=== PATIENT | female | born 2005 | race African-American/Black ===

== ENCOUNTER 2024-06-28 12:12 | Emergency (ER) | payer MEDICAID ==
[~2024-06-28] VITALS: Ht 167.6 cm; Wt 86.2 kg
[2024-06-28] MEDS ORDERED: ONDANSETRON HCL/PF 4 MG/2 ML VIAL ONE (12:56)
[2024-06-28] MEDS ORDERED: KETOROLAC TROMETHAMINE 15 MG/ML VIAL ONE (12:56)
[2024-06-28] MEDS: KETOROLAC TROMETHAMINE 15 MG/ML VIAL IV ONE (13:00)
[2024-06-28] MEDS: IV NS 0.9% 1,000 ML BAG IV ONE (13:06)
[2024-06-28] MEDS: ONDANSETRON HCL/PF 4 MG/2 ML VIAL IVP ONE (13:07)
[2024-06-28] MEDS ORDERED: DICY10CA37 PO (13:25)
[2024-06-28] MEDS ORDERED: ONDA4TAB11 PO (13:25)
[2024-06-28 14:26] LABS: PREGNANCY TEST URINE QUAL NEGATIVE (NEGATIVE)
[2024-06-28 14:41] VITALS: BP 122/68; TEMP 98.3; O2SAT 97
== END 2024-06-28 14:41 | disposition home or self-care (01) ==
LOC: ER 12:17
DX: R11.2 Nausea with vomiting, unspecified (principal); E86.0 Dehydration; R10.9 Unspecified abdominal pain
CPT/HCPCS: 99284; 96374; 96361; 96375; 84703; J1885; J2405; J7030

== ENCOUNTER 2024-06-30 19:38 | Emergency (ER) | payer MEDICAID ==
[~2024-06-30] VITALS: Ht 167.6 cm; Wt 86.2 kg
[~2024-06-30 19:38] MED LIST: DICY10CA37 PO; ONDA4TAB11 PO
[2024-06-30] MEDS ORDERED: ONDANSETRON HCL/PF 4 MG/2 ML VIAL ONE (22:44)
[2024-06-30] MEDS: IV NS 0.9% 1,000 ML BAG IV ONE (22:44)
[2024-06-30] MEDS: ONDANSETRON HCL/PF 4 MG/2 ML VIAL IVP ONE (22:45)
[2024-06-30 22:55] LABS: BASOPHILS # (AUTO) 0.1 K/uL (0.0-0.2); BASOPHILS % (AUTO) 0.7 % (0.0-2.0); EOSINOPHILS % (AUTO) 0.1 % (0.0-6.0); HEMATOCRIT 40 % (33-45); HEMOGLOBIN 12.6 g/dL (11.5-14.8); LYMPHOCYTES # (AUTO) 1.8 K/uL (0.8-4.8); LYMPHOCYTES % (AUTO) 20.1 % (20.0-44.0); MEAN CORPUSCULAR HEMOGLOBIN 23 PG (26.0-33.0); MEAN CORPUSCULAR HGB CONC 32 g/dl (31.0-36.0); MEAN CORPUSCULAR VOLUME 71 fL (82-100); MONOCYTES # (AUTO) 0.4 K/uL (0.1-1.30); MONOCYTES % (AUTO) 4.3 % (2.0-12.0); NEUTROPHILS # (AUTO) 6.7 K/uL (1.8-8.9); NEUTROPHILS % (AUTO) 74.8 % (43.0-81.0); PLATELET COUNT (AUTO) 334 K/uL (150-450); WHITE BLOOD COUNT (AUTO) 8.9 K/uL (4.3-11.0)
[2024-06-30 22:57] LABS: APPEARANCE,URINE CLEAR (CLEAR); BILIRUBIN,URINE NEGATIVE (NEGATIVE); BLOOD, URINE NEGATIVE Ery/uL (NEGATIVE); COLOR,URINE YELLOW (YELLOW); KETONES,URINE 1+ mg/dL (NEGATIVE); LEUKOCYTE ESTERASE ,URINE NEGATIVE (NEGATIVE); NITRITE, URINE NEGATIVE (NEGATIVE); PROTEIN,URINE TRACE mg/dl (NEGATIVE); UGLUCOSE NEGATIVE (NEGATIVE); UROBILINOGEN,URINE 0.2 EU/dL (0.2)
[2024-06-30 22:59] LABS: PREGNANCY TEST URINE QUAL NEGATIVE (NEGATIVE)
[2024-06-30 23:06] LABS: ALBUMIN 4.5 g/dL (3.4-5.0); BILIRUBIN,DIRECT 0.1 mg/dL (0.0-0.2); BILIRUBIN,TOTAL 0.3 mg/dL (0.2-1.0); CALCIUM, SERUM 9.3 mg/dL (8.5-10.1); CREATININE 0.8 mg/dL (0.6-1.3); POTASSIUM 3.8 mmol/L (3.5-5.1); TOTAL PROTEIN, SERUM 8.1 g/dL (6.4-8.2)
[2024-06-30 23:14] LABS: ADD URINE CULTURE YES; BACTERIA,URINE Few /HPF (None Seen)
[2024-07-01] MEDS ORDERED: METO-295 PO (00:09)
[2024-07-01 00:23] VITALS: BP 132/78; TEMP 98.9; O2SAT 100
== END 2024-07-01 00:24 | disposition home or self-care (01) ==
LOC: ER 19:43
DX: K52.9 Noninfective gastroenteritis and colitis, unspecified (principal); R11.2 Nausea with vomiting, unspecified
CPT/HCPCS: 99285; 74176; 96374; 96361; 85025; 80048; 87086; 83690; 80076; 84703; 81001; 36415; J2405; J7030

== ENCOUNTER 2024-09-27 12:30 | Emergency (ER) | payer SELFPAY ==
[~2024-09-27] VITALS: Ht 167.6 cm; Wt 81.6 kg
[~2024-09-27 12:30] MED LIST changes: +METO-295 PO
[2024-09-27] MEDS ORDERED: ONDANSETRON 4 MG TAB.RAPDIS SL ONE (14:30)
[2024-09-27] MEDS ORDERED: ONDANSETRON 4 MG TAB.RAPDIS ONE (14:34)
[2024-09-27] MEDS: ONDANSETRON HCL/PF 4 MG/2 ML VIAL IV ONE (15:04)
[2024-09-27 15:15] LABS: BASOPHILS % (AUTO) 0.3 % (0.0-2.0); HEMATOCRIT 41 % (33-45); LYMPHOCYTES # (AUTO) 1.7 K/uL (0.8-4.8); LYMPHOCYTES % (AUTO) 15.2 % (20.0-44.0); MEAN CORPUSCULAR HEMOGLOBIN 22 PG (26.0-33.0); MEAN CORPUSCULAR HGB CONC 32 g/dl (31.0-36.0); MEAN CORPUSCULAR VOLUME 69 fL (82-100); MONOCYTES # (AUTO) 0.7 K/uL (0.1-1.30); MONOCYTES % (AUTO) 6.3 % (2.0-12.0); NEUTROPHILS # (AUTO) 8.7 K/uL (1.8-8.9); NEUTROPHILS % (AUTO) 78.2 % (43.0-81.0); PLATELET COUNT (AUTO) 307 K/uL (150-450); RED BLOOD CELL COUNT(AUTO) 5.84 MIL/uL (4.0-5.2); RED CELL DISTRIBUTION WIDTH 17.1 % (11.5-15.0); WHITE BLOOD COUNT (AUTO) 11.1 K/uL (4.3-11.0)
[2024-09-27 15:30] LABS: CREATININE 0.9 mg/dL (0.6-1.3); POTASSIUM 3.5 mmol/L (3.5-5.1)
[2024-09-27 16:59] LABS: APPEARANCE,URINE CLEAR (CLEAR); BILIRUBIN,URINE 1+ (NEGATIVE); BLOOD, URINE NEGATIVE Ery/uL (NEGATIVE); COLOR,URINE YELLOW (YELLOW); KETONES,URINE 3+ mg/dL (NEGATIVE); LEUKOCYTE ESTERASE ,URINE 1+ (NEGATIVE); NITRITE, URINE NEGATIVE (NEGATIVE); PROTEIN,URINE 1+ mg/dl (NEGATIVE); UGLUCOSE NEGATIVE (NEGATIVE); UROBILINOGEN,URINE 0.2 EU/dL (0.2)
[2024-09-27] MEDS ORDERED: DOXY100T2 PO (16:59)
[2024-09-27] MEDS ORDERED: METR-147 PO (16:59)
[2024-09-27] MEDS ORDERED: ONDA4TAB11 PO (17:06)
[2024-09-27] MEDS ORDERED: LIDOCAINE 1% INJ 50 ML MDV IJ ONE (17:22)
[2024-09-27] MEDS ORDERED: CEFTRIAXONE 500 MG VIAL ONE (17:22)
[2024-09-27] MEDS: CEFTRIAXONE 500 MG VIAL IM ONE (17:35)
[2024-09-27 17:38] VITALS: BP 129/70; TEMP 99; O2SAT 99
[2024-09-27 17:38] LABS: RBC,URINE 0-2 /HPF (0-2)
[2024-09-27 17:39] LABS: ADD URINE CULTURE YES; BACTERIA,URINE 2+ /HPF (None Seen)
[2024-09-27 17:40] LABS: MUCUS,URINE Moderate /LPF (None Seen)
== END 2024-09-27 17:39 | disposition home or self-care (01) ==
LOC: ER 12:40
DX: R10.32 Left lower quadrant pain (principal); R11.2 Nausea with vomiting, unspecified; R10.2 Pelvic and perineal pain; Z79.899 Other long term (current) drug therapy
CPT/HCPCS: 99285; 96374; 76856; 85025; 80048; 87086; 81001; 36415; 84702; 96372; J3490; J0696; J2405; Q0162